=== PATIENT | female | born 1950 | race Caucasian/White ===

== ENCOUNTER 2024-11-04 05:54 | Day surgery (SDC) | payer MEDICARE, BC, SELFPAY ==
--- NOTE | 2024-10-30 09:49 | HPS.HSE ---
Family Physician
-
Family Physician: NO INTERVIEW UNKNOWN
Chief Complaint
-
Paroxysmal atrial tachycardia.
History of Present Illness
The patient is a 74 year old female presenting today for paroxysmal atrial tachycardia. The patient has been having breakthrough episodes of her arrhythmia despite compliance with Metoprolol Succinate and Flecainide. A 2 day cardiac
monitor in July 2024 noted 4698 atrial tachycardia runs. The fastest run was 17 minutes and 47 seconds, averaging 112 beats per minute. Fortunately, the patient is overall asymptomatic during these episodes. She is interested in pursuing an EP
study and supraventricular tachycardia ablation in the hopes of potentially discontinuing medical therapy in the near future. She denies any current complaints today such as chest pain, shortness of breath, palpitations, nausea, vomiting, diarrhea,
lightheadedness, dizziness, cough, sore throat, or fever.
Medical History
Past Medical History
Past Medical History: Reports Other
Additional Past Medical History:
1. Paroxysmal atrial tachycardia, pharmacological therapy with Flecainide and Metoprolol Succinate.
2. PVCs and PACs.
3. Hypertension.
4. Hyperlipidemia.
5. Coronary artery disease, nonobstructive on cardiac cath 03/2024.
6. Mild tricuspid regurgitation.
7. Pulmonary nodules.
8. Diaphragmatic hernia without obstruction.
9. Fatty liver disease.
10. Osteoarthritis.
11. Polymyalgia rheumatica.
12. Obesity, BMI 32.8.
13. Remote history of tobacco abuse.
Past Surgical History: Reports Other
Additional Past Surgical History:
1. Cardiac catheterization.
2. Colonoscopy.
Social History
Tobacco: Former Smoker (She is a former 1 pack per day cigarette smoker who quit tobacco altogether 35 years ago. )
Alcohol: Other (Social alcohol use reported on the weekends. )
Living: Alone (She lives in a 1 story home. )
Family History
Family History: Not pertinent
Allergies / Home Medications
Allergy/Medication List:
Home medications:
1. Aspirin 81 mg p.o. daily.
2. Cholecalciferol 125 mcg p.o. daily.
3. Flecainide 100 mg p.o. every 12 hours.
4. Losartan 50 mg p.o. daily.
5. Metoprolol Succinate 50 mg p.o. daily.
6. Zinc with selenium 1 tablet p.o. daily.
7. Atorvastatin 10 mg p.o. daily.
Allergies: Penicillin (remote).
Review of Systems
-
A 12 point ROS was completed and negative except as noted: Yes
Physical Exam
Vital Signs
Blood pressure 148/100, repeat blood pressure 145/100. Heart rate 95. Respirations 18. Pulse ox 97% on room air.
Height 5 feet, 3 inches. Weight 84.1 kg. BMI 32.8.
Physical Exam
General: Well Developed, Well Nourished and No Apparent Distress
HEENT: NormoCephalic, Moist mucous membranes, Atraumatic and PERRLA
Respiratory: Clear
Cardiac: Bradycardia
GI: Soft, Non Tender, Non Distended and Other (Obese. )
Musculoskeletal: No Edema and Normal Gait & Station
Skin: Warm and Dry
Neuro: AO x 3 and Nonfocal/grossly intact
Psych: Anxious
Laboratory Results
-
DIAGNOSTIC STUDIES as of 10/30/2024: White blood cell count 5.2. Hemoglobin 13.7. Platelet count 265,000. Sodium 135. Potassium 4.5. BUN 18. Creatinine 0.8. Glucose 98. Calcium 9.6. Magnesium 2.2. AST 23. ALT 14. Albumin 4.6.
EKG 10/30/2024: Sinus bradycardia. Left axis deviation.
Echocardiogram 04/17/2024: Overall LV function is normal with distal anterolateral mild hypokinesis. Ejection fraction is 60-65%. Stage I diastolic dysfunction. Normal RV function and RV systolic pressure. Trace mitral and pulmonic regurgitation.
Mild tricuspid regurgitation.
Impression/Plan
-
IMPRESSION/PLAN:
1. Paroxysmal atrial tachycardia: The patient is in need of an EP study and supraventricular tachycardia ablation with Dr. Davi Pereira on 11/04/2024. The benefits and risks of the procedure have been explained to the patient. The patient
understands these risks and wishes to proceed. She is aware to hold her Metoprolol Succinate and Flecainide 5 days prior to her procedure.
[2024-10-30 10:43] VITALS: BMI 32.9
[2024-11-04] VITALS (14 sets, daily range): BP systolic 98–157; BP diastolic 56–110; BMI 34.0
--- NOTE | 2024-11-04 09:45 | ITS.CL.ABL ---
Addendum entered and electronically signed by Davi Pereira MD 11/04/24 10:17:
I will plan to see the patient in approximately 4 weeks to see a response from the switch to metoprolol to Cardizem. If her symptoms are managed well I would plan to allow her to proceed to hip placement. If she has ongoing symptoms could consider
a switch to sotalol therapy. I did discuss with patient and daughters that she will have periodic symptoms but symptom control would be the primary focus and that typically we would not see structural changes in her ejection fraction or valve
function.
Original Note:
Furnace Brazer - Ablation
Ablation
Procedure Report:
ELECTROPHYSIOLOGY ABLATION REPORT
Date of Procedure: November 04, 2024
Referring: Dr. CLEMENTINA Yancey
INDICATION: Paroxysmal atrial tachycardia noted on monitor with symptoms despite flecainide
HISTORY: PAT noted on monitor without symptoms despite flecainide
PROCEDURE:
Baseline intracardiac measurements were obtained in sinus rhythm. HRA, HIS, RVA and CS catheters were placed. 1 quadripolar catheter was utilized to record the hiss bundle which was then placed into the right ventricle and utilized for right
ventricular pacing. 3D mapping was utilized with the [employer] mapping system
Atrial decremental extrastimuli were delivered from the HRA and the CS. Single and double extrastimuli as well as burst pacing were performed from both sites in both the baseline state and with isoproterenol infusion which was performed up to 3 mcg
and was not tolerated at higher doses due to hypotension. We did provide pressor support to allow isoproterenol infusion. Atrial and AVN antegrade ERP's were determined. Antegrade as well as retrograde AVN [place] CL's were determined.
MEASUREMENTS:
BASELINE
A-A: 900 ms
P-P: 900 ms
A-H: 88 ms
H-V 58 ms
P-R: 154 ms
QRS: 80 ms
QT: 380 ms
SNRT: Normal at 600 ms
AVN Wenckebach: 340 ms
AVN Fast Pathway ERP: 600�3 10 ms
AVN Slow Pathway ERP: There was no evidence of slow pathway conduction
HIS-Purkinje System: Normal; no distal block
Retrograde Conduction Decremental, Retrograde Block 370 ms with conduction being concentric and decremental and there was no evidence of concealed bypass tract
Burst pacing from the ventricle demonstrated the patient was not inducible for ventricular tachycardia
The patient had spontaneous atrial tachycardia which was isoproterenol sensitive. Pacing during spontaneous runs of atrial tachycardia from the V demonstrated a VA AV response. Spontaneous from 3 beats up to 15 beats under anesthesia on
isoproterenol. Spontaneous off of isoproterenol for 3-5 beats. There was multifocal atrial activation with 4 distinct groupings of atrial beats. There was a high to mid vaishali terminalis activation pattern and 1 grouping although diffuse
activation across the vaishali terminalis, a second grouping at the base of the right atrial appendage, a third grouping near the coronary sinus, and also a distal to proximal coronary sinus activation suggesting left atrial activation from the left
side of the left atrium. There were also spontaneous beats in the septal high right atrium which could be interatrial septal or right pulmonary vein in nature which were sparse. Activation was beat to beat different for much of the nonsustained
tachyarrhythmias suggesting at least 12-15 different sites of origin and perhaps significantly higher. The groupings were mapped as best we could given [id number] changes in cycle length with 3D mapping demonstrating these areas of early
activation.
Given the multifocal atrial tachycardia with absence of AV joni reentry, atrial fibrillation or atrial flutter, and AV reentry we stopped isoproterenol and did not perform ablation. After EP study was performed [id number] suture after sheaths
and catheters were removed.
COMPLICATIONS: None
SUMMARY: Multifocal atrial tachycardia as demonstrated by multifocal APD's and tachycardias. Noninducible for AV joni reentry, AV reentry, and atrial fibrillation or atrial flutter.
RECOMMENDATIONS:
1. Switch metoprolol to Cardizem
2. Out of bed in 4 hours and cut [id number] stitch
== END 2024-11-04 14:00 | disposition home or self-care (01) ==
LOC: CATH 05:54
PROVIDERS: ATTENDING PHYSICIAN Internal Medicine Cardiovascular Disease; FAMILY PHYSICIAN Family Medicine; OTHER PHYSICIAN Internal Medicine Interventional Cardiology
DX: I47.19 Other supraventricular tachycardia (principal); I10 Essential (primary) hypertension; I49.3 Ventricular premature depolarization; E78.5 Hyperlipidemia, unspecified; I25.10 Atherosclerotic heart disease of native coronary artery without angina pectoris; I07.1 Rheumatic tricuspid insufficiency; R91.8 Other nonspecific abnormal finding of lung field; K44.9 Diaphragmatic hernia without obstruction or gangrene; K76.0 Fatty (change of) liver, not elsewhere classified; M19.90 Unspecified osteoarthritis, unspecified site; M35.3 Polymyalgia rheumatica; E66.9 Obesity, unspecified; Z87.891 Personal history of nicotine dependence; Z68.32 Body mass index [BMI] 32.0-32.9, adult; Z79.82 Long term (current) use of aspirin; Z79.899 Other long term (current) drug therapy; Z88.0 Allergy status to penicillin; I49.1 Atrial premature depolarization
CPT/HCPCS: C1732; C1730 ×2; C1894; C1892; 93005; 93623; 93653

== ENCOUNTER 2024-11-17 07:07 | Emergency (ER) | payer MEDICARE, BC, SELFPAY ==
[2024-11-17 07:13] VITALS: BP 134/99
--- NOTE | 2024-11-17 08:14 | ED.GENMED ---
History of Present Illness
General
Chief Complaint: Swelling
Source: patient
Exam Limitations: none
Time Seen by Provider: 11/17/24 07:31
Nursing documentation reviewed up to this point in time: agreed with
History of Present Illness
History of Present Illness:
74-year-old female history HTN, HLD states she fell in her home yesterday when she tripped, injuring her right ring finger. She developed significant swelling and ecchymosis and is unable to get her ring off. She denies hitting her head or any
other injury. She is not anticoagulated.
Past History
Past History
ED Past Medical History: HTN and Hypercholesterolemia
Social History
Tobacco: Non-smoker
Alcohol: None
Personal:
Living: alone
Review of Systems
Review of Systems
Allergies reviewed?: Yes
All Other Systems: ROS reviewed and negative except as documented in HPI and ROS
Constitutional: Denies fever
Musculoskeletal: Reports other (pain, swelling, bruising right ring and 5th fingers); Denies neck pain or back pain
Neurological: Denies numbness
Phy Exam
Physical Exam
Physical Exam:
PHYSICAL EXAMINATION:
General: no apparent distress, not acutely ill
Neuro: alert and oriented.
Psychiatric: well kept. interactive and cooperative
Musculoskeletal: Right ring and fifth fingers are edematous, ecchymotic, all tendon function intact but limited due to swelling. Per patient, pain is minimal. Ring removed. Distal neurovascular intact. Moves with ease
Skin: Warm, pink.
Scores
Heart Failure Risk
Heart Failure Risk Score: Not Applicable
Course
Orders/Labs/Results
Orders:
Orders
11/17/24 07:34
Finger(s)/Thumb 2 View Rt [CR Finger(s)/thumb Min 2 Vw Rt] Urgent
Comment:
Reason For Exam: Ring fnger swelling after fall
11/17/24 08:44
Finger(s)/Thumb 2 View Rt [CR Finger(s)/thumb Min 2 Vw Rt] Urgent
Comment:
Reason For Exam: Ring finger, post reduction
11/17/24 09:21
Ulnar Gutter Right-Treatment ONCE
Vital Signs
Initial and Last Documented VS:
Initial Vital Signs
Temp Pulse Resp BP Pulse Ox
98.5 F 78 16 134/99 98
11/17/24 07:13 11/17/24 07:13 11/17/24 07:13 11/17/24 07:13 11/17/24 07:13
Last Documented Vital Signs
Temp Pulse Resp BP Pulse Ox
98.5 F 78 16 134/99 98
11/17/24 07:13 11/17/24 07:13 11/17/24 09:51 11/17/24 07:13 11/17/24 07:13
Procedures
Splint Check
Splint checked by provider?: Yes
Circulation/Movement/Sensation post splint application: brisk cap refill and full sensation
Joint/Fracture Reduction
Right Fourth Finger:
Indication for procedure:: Dislocation PIP joint
Procedure completed by: I Day [employer]
Joint reduced: with anesthesia sedation
Anesthesia/sedation: 1% Lidocaine w/ Epi and Added Na bicarb to local
Injury was: closed
Further treatement: needs re-check only
Post reduction exam: stable
Capillary Refill: normal
Normal distal neurovascular exam?: Yes
MDM/Problems Addressed
MDM/Problems Addressed:
74-year-old female history HTN, HLD states she fell in her home yesterday when she tripped, injuring her right ring finger. She developed significant swelling and ecchymosis and is unable to get her ring off. She denies hitting her head or any
other injury. She is not anticoagulated.
Ring removed
Distal neurovascular intact
X-ray right ring finger initially read by this examiner: Reveals a dislocation at the PIP joint. No fracture.
There is an avulsion fracture at the base of the PIP joint of the fifth finger.
9:10 a.m.
Postreduction x-ray initially read by this examiner: Jeri, no fracture
Ulnar gutter splint applied
Referred to ortho
*Critical Care Note
Total Time (30-74mins, 75-104mins- exclusive of procedures): Not Applicable
ED Attending Note
-
Portions of this chart may have been created with voice recognition software.� Occasional wrong word or��sound alike� substitutions may have occurred due to the inherent limitations of voice recognition software.
Discharge Plan
Departure
Patient Disposition: Home (Routine Discharge)
Date of Disposition: 11/17/24
Time of Disposition: 09:15
Patient with high blood pressure during this ER visit?: No
Condition: Good
Discharge Problem:
Fall from slip, trip, or stumble, Dislocation of finger, interphalangeal, closed, Fracture of finger of right hand
Instructions: Finger Dislocation (DC), Finger Fracture ED
Prescriptions:
No Action
losartan 50 mg Tablet
50 mg PO DAILY
aspirin 81 mg Tablet,Delayed Release (Dr/Ec)
81 mg PO DAILY
flecainide 100 mg Tablet
100 mg PO BID
cholecalciferol (vitamin D3) [Vitamin D3] 125 mcg (5,000 unit) Tablet
125 mcg PO DAILY
Zinc W/ Selenium
1 tab PO DAILY
atorvastatin 10 mg Tablet
10 mg PO DAILY
diltiazem HCl 180 mg capsule,extended release 24hr
180 mg PO DAILY Qty: 90 3RF
Referrals:
Bakari Marion DO [Family Provider] -
Ifrah Hope DO [Active] - Call in 1-3 days for appt
Activity Restrictions/Additional Instructions:
As we discussed, you have a chip fracture on the right fifth finger and you dislocated the right fourth finger joint
Tylenol or ibuprofen as needed for pain
Follow-up with the orthopedic doctor sometime within the next week
Interventions
Interventions:
*Risk Screen - Suicide Last Done: 11/17/24 07:13
*General Assessment Last Done: 11/17/24 07:13
*Neglect/Abuse Screening Last Done: 11/17/24 07:50
ED- Fall Risk Assessment Last Done: 11/17/24 07:47
*ED COVID-19 Vaccine History Last Done: 11/17/24 07:13
*Nursing Disposition Last Done: 11/17/24 09:51
ED- Cardiac Assessment Last Done: 11/17/24 07:47
ED- Pulmonary Assessment Last Done: 11/17/24 07:47
ED-Skin Assessment Last Done: 11/17/24 07:47
Discharge Date and Time
Discharge Date/Time: 11/17/24 09:52
Print Language: LAO
== END 2024-11-17 09:52 | disposition home or self-care (01) ==
LOC: EMR 07:07
PROVIDERS: EMERGENCY PHYSICIAN Emergency Medicine; FAMILY PHYSICIAN Family Medicine
DX: S63.285A Dislocation of proximal interphalangeal joint of left ring finger, initial encounter (principal); S62.611A Displaced fracture of proximal phalanx of left index finger, initial encounter for closed fracture; W01.0XXA Fall on same level from slipping, tripping and stumbling without subsequent striking against object, initial encounter; I10 Essential (primary) hypertension; E78.00 Pure hypercholesterolemia, unspecified
CPT/HCPCS: 26770; 29125; 99283; 73140